=== PATIENT | female | born 2000 | race African-American/Black ===

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

== ENCOUNTER 2022-09-13 03:37 | Observation (INO) | payer MEDICAID ==
[~2022-09-13] VITALS: Ht 162.6 cm; Wt 56.2 kg
[2022-09-13] MEDS ORDERED: ONDANSETRON HCL 4MG/2ML INJ IV STA (04:05)
[2022-09-13] MEDS ORDERED: DEXT 5%/LACTATED RINGERS 1,000 ML IV ONE (04:15)
[2022-09-13] MEDS ORDERED: MVI, ADULT NO.1 10 ML in DEXT 5%/LACTATED RINGERS 1,000 ML IV NR ×2 (04:15)
[2022-09-13 05:37] LABS: CLARITY URINE CLOUDY (CLEAR); COLOR URINE YELLOW (YELLOW); KETONES URINE TRACE (NEGATIVE); LEUKOCYTE ESTERASE URINE 2+ (NEGATIVE); NITRITE URINE NEGATIVE (NEGATIVE); OCCULT BLOOD URINE NEGATIVE (NEGATIVE); PROTEIN URINE NEGATIVE (NEGATIVE); SPECIFIC GRAVITY URINE 1.022 (1.005-1.030)
[2022-09-13 05:44] LABS: CHLORIDE 106 mEq/L (98-107)
[2022-09-13 06:03] LABS: *AMPHETAMINES SCREEN URINE NEGATIVE (NEGATIVE); *BARBITURATES SCREEN URINE NEGATIVE (NEGATIVE); *BENZODIAZEPINES SCREEN URINE NEGATIVE (NEGATIVE); *COCAINE SCREEN URINE NEGATIVE (NEGATIVE); METHADONE URINE SCREEN NEGATIVE (NEGATIVE); OPIATES URINE SCREEN NEGATIVE (NEGATIVE); PHENCYCLIDINE URINE SCREEN NEGATIVE (NEGATIVE)
[2022-09-13 06:24] LABS: CANNABINOID URINE SCREEN PRESUMTIVE POSITIVE (NEGATIVE)
[2022-09-22 10:10] LABS: CANNABINOID CONFIRMATION URINE Positive (.)
== END 2022-09-13 06:30 | disposition home or self-care (01) ==
LOC: 8EST 03:37
PROVIDERS: ADMIT Specialist; ATTEND Specialist
DX: O21.2 Late vomiting of pregnancy (principal); O26.892 Other specified pregnancy related conditions, second trimester; R10.9 Unspecified abdominal pain; Z3A.20 20 weeks gestation of pregnancy; Z79.899 Other long term (current) drug therapy
CPT/HCPCS: 36415; 59025; 76805; 80053; 80305; 80349; 81003; 96361; 96365; 96375; G0378; J2405; J3490; J7121; 96360; 99281